=== PATIENT | female | born 1985 | race Two or more races ===

== ENCOUNTER 2025-07-28 08:10 | Emergency (ER) | payer OTHER ==
[~2025-07-28] VITALS: Ht 154.9 cm; Wt 57.6 kg
[2025-07-28 10:00] LABS: BASO % 0.8 % (0.1-1.2); EOS # 0.12 (0.04-0.54); EOS % 1.6 % (0.7-7.0); LYMPH # 2.43 (1.18-3.74); LYMPH % 33.1 % (19.3-53.1); MEAN PLATELET VOLUME 11.20 fl (9.4-12.4); MONO # 0.55 (0.24-0.82); MONO % 7.5 % (4.7-12.5); NEUT # 4.18 (1.56-6.13); NEUT % 56.9 % (34.0-71.1); RED CELL DISTRIBUTION WIDTH 12.4 % (11.6-14.4)
[2025-07-28 10:26] LABS: BUN CREA RATIO 12 (7.0-25.0); CREATININE SERUM 0.76 mg/dL (0.55-1.02); GFR 84.29; GLUCOSE FASTING 93 mg/dL (65-100); HCG QUANTITATIVE < 1 mUI/mL (1-3); OSMOLALITY SERUM 278 MOSM/KG (275-295)
[2025-07-29] MEDS ORDERED: ZITHROMAX500 MG PO (04:56)
[2025-07-29] MEDS ORDERED: NORFLEX100MG PO (04:56)
[2025-07-29] MEDS ORDERED: PEPCID AC20 MG PO (04:56)
== END 2025-07-28 13:41 | disposition home or self-care (01) ==
LOC: ER 08:10
PROVIDERS: General Practice
DX: M54.2 Cervicalgia (principal); R07.9 Chest pain, unspecified

== ENCOUNTER 2025-07-28 20:54 | Emergency (ER) | payer OTHER ==
[~2025-07-28] VITALS: Ht 160 cm; Wt 54.4 kg
[2025-07-28] MEDS ORDERED: ORPHENADRINE CITRATE 30 MG/ML AMPUL IM ONE (23:00)
[2025-07-28] MEDS ORDERED: KETOROLAC TROMETHAMINE 30 MG VIAL IU ONE (23:00)
[2025-07-28] MEDS ORDERED: FAMOtidine 10 MG/ML (4ML VIAL) IV PUSH ONE (23:15)
[2025-07-29] MEDS ORDERED: KETOROLAC TROMETHAMINE 30 MG VIAL ONE (00:29)
[2025-07-29] MEDS ORDERED: ORPHENADRINE CITRATE 30 MG/ML AMPUL ONE (00:30)
[2025-07-29] MEDS ORDERED: FAMOTIDINE/PF 20 MG/2 ML VIAL ONE (00:30)
[2025-07-29 01:26] LABS: BASO % 0.5 % (0.1-1.2); EOS # 0.02 (0.04-0.54); EOS % 0.2 % (0.7-7.0); LYMPH # 2.44 (1.18-3.74); LYMPH % 20.5 % (19.3-53.1); MEAN PLATELET VOLUME 10.70 fl (9.4-12.4); MONO # 0.51 (0.24-0.82); MONO % 4.3 % (4.7-12.5); NEUT # 8.86 (1.56-6.13); NEUT % 74.2 % (34.0-71.1); RED CELL DISTRIBUTION WIDTH 12.3 % (11.6-14.4)
[2025-07-29 01:47] LABS: ALT/SGPT 24.0 U/L (12-78); AST/SGOT 17.0 U/L (15-37); BILIRUBIN TOTAL 0.41 mg/dL (0.3-1.2); BUN CREA RATIO 16.0 (7.0-25.0); CREATININE SERUM 0.75 mg/dL (0.55-1.02); GFR 85.58; GLOBULINA 3.8 G/DL (2.4-3.5); GLUCOSE FASTING 101.0 mg/dL (65-100); OSMOLALITY SERUM 279.0 MOSM/KG (275-295)
[2025-07-29] MEDS ORDERED: CEFTRIAXONE SODIUM 1,000 MG VIAL IM ONE (02:30)
[2025-07-29] MEDS ORDERED: CEFTRIAXONE SODIUM 1,000 MG VIAL ONE (02:52)
[2025-07-29] MEDS ORDERED: ZITHROMAX500 MG PO (04:56)
[2025-07-29] MEDS ORDERED: NORFLEX100MG PO (04:56)
[2025-07-29] MEDS ORDERED: PEPCID AC20 MG PO (04:56)
== END 2025-07-29 05:09 | disposition home or self-care (01) ==
LOC: ER 20:54
PROVIDERS: Behavior Technician
DX: R07.9 Chest pain, unspecified (principal); F41.8 Other specified anxiety disorders; M94.0 Chondrocostal junction syndrome [Tietze]; J00 Acute nasopharyngitis [common cold]